=== PATIENT | female | born 1975 | race Caucasian/White ===

== ENCOUNTER → 2020-12-04 | Outpatient (CLI) | payer MEDICARE, OTHER ==
[~2020-12-04] MED LIST: BASAGLAR K100 UNIT/1 SQ; LEVOTHYROXINE137 MCG PO; MONTELUKAST SOD10 MG PO; MULTI-VITAMIN1 EAC1 PO; PROTONIX 40 MG40 M1 PO; VITAMIN D21250 MCG PO
== END ==
LOC: KOH-I 11-26 13:45
DX: J45.909 Unspecified asthma, uncomplicated (principal); M25.562 Pain in left knee; S83.282A Other tear of lateral meniscus, current injury, left knee, initial encounter; S83.242A Other tear of medial meniscus, current injury, left knee, initial encounter; M89.8X8 Other specified disorders of bone, other site; X58.XXXA Exposure to other specified factors, initial encounter
CPT/HCPCS: 73721

== ENCOUNTER → 2021-04-02 | Outpatient (CLI) | payer MEDICARE, OTHER | LOC: OPSV 12:09 | DX: E86.0 Dehydration (principal); E66.9 Obesity, unspecified; E11.9 Type 2 diabetes mellitus without complications; Z98.84 Bariatric surgery status | CPT/HCPCS: 96360 ==

== ENCOUNTER → 2021-04-03 | Outpatient (CLI) | payer MEDICARE, OTHER | LOC: OPSV 08:00 | DX: E86.0 Dehydration (principal); E66.9 Obesity, unspecified | CPT/HCPCS: 96360; J7030 ==

== ENCOUNTER → 2021-04-04 | Outpatient (CLI) | payer MEDICARE, OTHER | LOC: OPSV 06:55 | DX: E86.0 Dehydration (principal); E66.9 Obesity, unspecified; E11.9 Type 2 diabetes mellitus without complications | CPT/HCPCS: 96360; J7030 ==

== ENCOUNTER → 2021-05-08 | Outpatient (CLI) | payer MEDICARE, OTHER ==
[2021-05-08 09:31] LABS: HEMOGLOBIN 14.6 gm/dl (12.3-15.3); RED BLOOD COUNT 4.76 M/UL (4.00-5.10); WHITE BLOOD COUNT 6.9 K/UL (4.5-11.0)
[2021-05-08 09:57] LABS: BUN/CREATININE RATIO 13 (0-10)
== END ==
LOC: OPSV2 08:41
PROVIDERS: Orthopaedic Surgery
DX: Z01.818 Encounter for other preprocedural examination (principal); S83.207A Unspecified tear of unspecified meniscus, current injury, left knee, initial encounter
CPT/HCPCS: 36415; 71046; 80048; 85025